=== PATIENT | female | born 1960 | race Caucasian/White ===

== ENCOUNTER 2017-05-31 19:20 | Emergency (ER) | payer BC, OTHER ==
[2017-05-31 19:59] LABS: ABS Basophils 0 10^3/ul (0-0.2); ABS Eosinophils 0.2 10^3/ul (0-0.6); ABS Lymphocytes 2.5 10^3/ul (1.0-4.8); ABS Monocytes 0.6 10^3/ul (0-0.8); ABS Neutrophils 6.1 10^3/ul (1.5-7.7); ABS Nucleated RBC 0.01 10^3/ul; Eosinophil % 2.6 % (0-6); Hematocrit 42 % (35-47); Hemoglobin 14.3 g/dl (12.0-16.0); Mean Corpuscular HGB Conc 34 g/dl (31-36); Mean Corpuscular Hemoglobin 31 pg (27-31); Mean Corpuscular Volume 92 fL (80-97); Mean Platelet Volume 9 um3 (7.4-10.4); Nucleated Red Blood Cells % 0.1; Platelet Count 283 10^3/ul (150-450); Red Blood Count 4.58 10^6/ul (4.0-5.4); Red Cell Distribution Width 13 % (10.5-15); White Blood Count 9.4 10^3/ul (3.5-10.8)
[2017-05-31] MEDS: Nitroglycerin TAB 0.4 MG* 0.4 MG TAB SL ONE ×2 (20:03→20:31)
[2017-05-31 20:09] LABS: EGFR Non-African American 71.9 (>60)
[2017-05-31] MEDS ORDERED: Iohexol 350* (CONTRAST) 500 ML MDV IV ONE (20:18)
--- NOTE | 2017-05-31 20:18 | RAD ---
INDICATION: Chest pain COMPARISON: None. TECHNIQUE: Single AP portable view of the chest was obtained. FINDINGS: Image quality is compromised due to the relative inferiority of a portable chest x-ray. The heart and mediastinum exhibit normal size and contour. The lungs are grossly clear. There is no evidence of a large pleural effusion. Visualized bones are normal for the patient's age. IMPRESSION: No radiographic evidence for acute cardiopulmonary abnormality on this portable chest x-ray.
--- NOTE | 2017-05-31 21:42 | RAD ---
STUDY: CT angiography of the chest, abdomen and pelvis. INDICATION: Chest pain radiating to the back COMPARISON: CT abdomen pelvis dated February 25, 2012 TECHNIQUE: Multidetector CT angiography of the chest, abdomen and pelvis were obtained from the lung apices to the ischial tuberosities after the intravenous injection of 100 mL Omnipaque 350. Reformats were created in the coronal and sagittal planes. 3-D vascular imaging was created from the source images and reviewed as well. ANGIOGRAPHIC FINDINGS: There is no filling defect of the center or lobar pulmonary arteries to indicate centrilobular pulmonary embolism. The segmental branches are less well evaluated. At the level of the bifurcation the mainstem pulmonary artery measures 4.4 mm in diameter (axial image 53). The right mainstem pulmonary artery is top normal at 2.7 cm in diameter. The level of the right mainstem pulmonary artery the ascending aorta measures 3.5 cm in diameter and the descending aorta measures 2.2 cm in diameter. There is no evidence of pathologic aneurysmal dilatation or acute dissection of the thoracic or abdominal aorta. The branch vessels off of the arch of the aorta are adequately patent as are the major branch vessels from the abdominal aorta. Contrast is seen filling continuously into the proximal femoral arteries. NON ANGIOGRAPHIC FINDINGS: Chest: The lungs are clear. There are no large pleural effusions. There is no mediastinal or hilar lymphadenopathy. The heart is grossly normal in appearance. Abdomen & Pelvis: There is a small hiatal hernia. In the right lobe of liver there is a fluid density structure most compatible with a benign cyst measuring 9 mm in greatest axial dimension. The liver is otherwise homogenous in attenuation. The spleen, pancreas and adrenal glands are grossly normal in appearance. The gallbladder is normal. The kidneys are normal in appearance without focal mass, calcification or signs of hydronephrosis. The renal cortices enhance promptly and symmetrically on arterial phase imaging. Evaluation of the gastrointestinal tract is limited without oral contrast. The small and large bowel are not distended. The partially gas-filled appendix is identified in the right lower quadrant measuring less than 6 mm in diameter (axial image 172). There are distal colonic diverticula but no acute inflammatory change characteristic of acute diverticulitis. There is no gross retroperitoneal or mesenteric lymphadenopathy. The pelvic viscera is normal in appearance. Degenerative changes of the thoracic and lumbar spine includes loss of intervertebral disc height as well as anterior marginal osteophyte formation at the lower thoracic and upper lumbar spine. IMPRESSION: 1. No CT evidence of pathologic aortic dissection or aneurysmal dilatation. 2. No centrilobular pulmonary embolism. 3. 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 According to the article cited at the bottom of this dictation, this indicates but does not prove the presence of pulmonary arterial hypertension. 4. Small hiatal hernia. 5. Additional chronic and degenerative changes described in body the report. Toni PD et al., CT Measurement of Main Pulmonary Artery Diameter, [place] Journal of Radiology, 1997, Oct; 71(721): 2360-2779.
[2017-06-01 00:05] VITALS: BP 132/63
--- NOTE | 2017-06-04 11:11 | ED ---
Amaya Barclay Gabriel, scribed for Donavan Watson MD on 05/31/17 at 1943 . HPI Chest Pain - HPI Summary HPI Summary: This patient is a 57 year old F presenting to [facility] accompanied by her family with a chief complaint of CP since that began at 0400 today. The patient rates the constant pain 8/10 in severity and radiating into her left flank, jaw, and ears. Symptoms alleviated slightly by Zantac. Patient reports SOB, dizziness, bilateral numbness in UE, pain on inspiration, and epigastric pain. Patient has a history of a heart murmur, HLD, HTN (resolved with weight loss) and sees a project architect regularly. She has never had a MD but has a family history of them. - History of Current Complaint Chief Complaint: EDChestPainROMI Time Seen by Provider: 05/31/17 19:37 Hx Obtained From: Patient Onset/Duration: Started Hours Ago - at 0400 today, Still Present Time of Onset: 04:00 Timing: Constant Initial Severity: Moderate Current Severity: Moderate Pain Intensity: 8 Pain Scale Used: 0-10 Numeric Chest Pain Location: Diffuse Chest Pain Radiates: Yes Chest Pain Radiates To:: Back, Flank, Arm, Jaw, Other - ear Character: Pressure/Squeezing Aggravating Factor(s): Nothing Alleviating Factor(s): Other: - antiacids Associated Signs and Symptoms: Positive: Other: - SOB, dizziness, bilateral numbness in UE, pain on inspiration, and epigastric pain. - Allergy/Home Medications Allergies/Adverse Reactions: Allergies Allergy/AdvReac Type Severity Reaction Status Date / Time Codeine Allergy Unknown Verified 01/25/15 16:44 Reaction Details PMH/Surg Hx/FS Hx/Imm Hx Endocrine/Hematology History: Denies: Hx Diabetes Cardiovascular History: Reports: Hx Angina - chest pressure, Hx Hypercholesterolemia Denies: Hx Coronary Artery Disease, Hx Hypertension - Hx of HTN but lost 40 lbs and it resolved , Hx Myocardial Infarction, Hx Valvular Heart Disease Respiratory History: Denies: Hx Asthma, Hx Chronic Obstructive Pulmonary Disease (COPD) Infectious Disease History: No Infectious Disease History: Denies: Traveled Outside the [place] in Last 30 Days - Family History Known Family History: Positive: Cardiac Disease - brother and father Negative: Diabetes - Social History Occupation: Employed Full-time Lives: With Family Alcohol Use: Occasionally Alcohol Amount: wine Substance Use Type: Reports: None Smoking Status (MU): Former Smoker Review of Systems Negative: Fever, Chills Negative: Erythema Positive: Ear Ache. Negative: Sore Throat Positive: Chest Pain Positive: Shortness Of Breath, Other - pain on inspiration. Negative: Cough Positive: Abdominal Pain - epigastric . Negative: Vomiting, Nausea Negative: dysuria, hematuria Positive: Other - flank and jaw pain . Negative: Myalgia, Edema Negative: Rash Neurological: Other - dizziness Positive: Numbness - in bilateral UE All Other Systems Reviewed And Are Negative: Yes Physical Exam - Summary Physical Exam Summary: Constitutional: Well-developed, Well-nourished, Alert. (-) Distressed Skin: Warm, Dry HENT: Normocephalic; Atraumatic Eyes: Conjunctiva normal Neck: Musculoskeletal ROM normal neck. (-) JVD, (-) Stridor, (-) Tracheal deviation Cardio: Rhythm regular, rate normal, Heart sounds normal; Intact distal pulses; The pedal pulses are 2+ and symmetric. Radial pulses are 2+ and symmetric. (+) Murmur 2 of 5 systolic Pulmonary/Chest wall: Effort normal. (-) Respiratory distress, (-) Wheezes, (-) Rales Abd: Soft, (-) Tenderness, (-) Distension, (-) Guarding, (-) Rebound Musculoskeletal: (-) Edema Lymph: (-) Cervical adenopathy Neuro: Alert, Oriented x3 Psych: Mood and affect Normal Triage Information Reviewed: Yes Vital Signs On Initial Exam: Initial Vitals Temp Pulse Resp BP Pulse Ox 97.7 F 91 16 183/77 99 05/31/17 19:23 05/31/17 19:23 05/31/17 19:23 05/31/17 19:23 05/31/17 19:23 Vital Signs Reviewed: Yes Diagnostics - Vital Signs Vital Signs Temp Pulse Resp BP Pulse Ox 05/31/17 19:23 97.7 F 91 16 183/77 99 - Laboratory Result Diagrams: 05/31/17 19:40 05/31/17 19:40 Lab Statement: Any lab studies that have been ordered have been reviewed, and results considered in the medical decision making process. - Radiology CXR Radiology Interpretation Completed By: Radiologist - No radiographic evidence for acute cardiopulmonary abnormality on this portable chest x-ray. ED physician has reviewed this radiology report. - CT CTA chest/abd/pelvis CT Interpretation Completed By: Radiologist - 1. No CT evidence of pathologic aortic dissection or aneurysmal dilatation. 2. No centrilobular pulmonary embolism. 3. 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 According to the article cited at the bottom of this dictation, this indicates but does not prove the presence of pulmonary arterial hypertension. 4. Small hiatal hernia. 5. Additional chronic and degenerative changes described in body the report. ED physician has reviewed this radiology report. - EKG 19:33 Cardiac Rate: NL EKG Rhythm: Sinus Rhythm - at 86 BPM EKG Interpretation: no acute changes , No STEMI Re-Evaluation - Re-Evaluation First Eval Re-Evaluation Time: 00:04 Change: Improved - The patient states her chest pain has resolved. Chest Pain Course/Dx - Course Assessment/Plan: This patient is a 57 year old F presenting to [facility] accompanied by her family with a chief complaint of CP since that began at 0400 today. The patient rates the constant pain 8/10 in severity and radiating into her left flank, jaw, and ears. Symptoms alleviated slightly by Zantac. Patient reports SOB, dizziness, bilateral numbness in UE, pain on inspiration, and epigastric pain. Patient has a history of a heart murmur, HLD, HTN (resolved with weight loss) and sees a project architect regularly. She has never had a MD but has a family history of them. An EKG reveals NSR with no acute changes. CXR reveals, per radiologist, No radiographic evidence for acute cardiopulmonary abnormality on this. portable chest x-ray. CTA chest/ABD/Pelvis reveals, per radiology, 1. No CT evidence of pathologic aortic dissection or aneurysmal dilatation. 2. No centrilobular pulmonary embolism. 3. There is pathologic dilatation of the main stem pulmonary artery measuring 4.4 cm in. diameter. According to the article cited at the bottom of this dictation, this indicates. but does not prove the presence of pulmonary arterial hypertension. 4. Small hiatal hernia. 5. Additional chronic and degenerative changes described in body the report. Test results with no significant abnormalities. In the ED course the patient was given NTG. Dx of CP unspecific. She had 2 negative Trops and her EKG showed no acute findings. We discussed patient care with Dr. Jessica and they recommended to take a second Trop and discharge her home. Patient will be discharged and follow up from Dr. Berumen. The patient is agreeable with this plan. - Diagnoses Provider Diagnoses: Chest pain, unspecified - Provider Notifications Discussed Care Of Patient With: Donald Jessica Time Discussed With Above Provider: 22:30 Instructed by Provider To: Other - We discussed patient care with Dr. Jessica and they recommended to take a second Trop and discharge her home. Discharge - Discharge Plan Condition: Stable Disposition: HOME Patient Education Materials: Chest Pain (ED) Referrals: Rolo Berumen MD [Medical Doctor] - 3 Days Svetlana Bragg NP [Primary Care Provider] - Additional Instructions: Follow up with Dr. Berumen in 2-3 days. RETURN TO THE EMERGENCY DEPARTMENT FOR CHANGING OR WORSENING SYMPTOMS. The documentation as recorded by the Amaya villalpando Gabriel accurately reflects the service I personally performed and the decisions made by , Donavan Watson MD.
== END 2017-05-31 23:50 | disposition home or self-care (01) ==
LOC: ED 19:20
DX: R07.9 Chest pain, unspecified (principal); R06.02 Shortness of breath; R42 Dizziness and giddiness; R10.13 Epigastric pain; Z87.891 Personal history of nicotine dependence; H92.09 Otalgia, unspecified ear
CPT/HCPCS: 36415; 71010; 71275; 74174; 80053; 83605; 84484; 85025; 85379; 93005; 99284; A9270-GY; Q9967

== ENCOUNTER 2019-06-04 12:25 | Emergency (ER) | payer BC ==
[2019-06-04 13:20] LABS: ABS Eosinophils 0.2 10^3/ul (0-0.6); ABS Lymphocytes 1.4 10^3/ul (1.0-4.8); ABS Monocytes 0.4 10^3/ul (0-0.8); ABS Neutrophils 4.9 10^3/ul (1.5-7.7); Eosinophil % 2.5 %; Hematocrit 43 % (35-47); Hemoglobin 14.6 g/dL (12.0-16.0); Lymphocyte % 20.3 %; Mean Corpuscular HGB Conc 34 g/dL (31-36); Mean Corpuscular Hemoglobin 31 pg (27-31); Mean Corpuscular Volume 92 fL (80-97); Nucleated Red Blood Cells % 0.1; Platelet Count 263 10^3/uL (150-450); Red Blood Count 4.67 10^6 /uL (3.70-4.87); Red Cell Distribution Width 13 % (10-15); White Blood Count 6.9 10^3/uL (3.5-10.8)
[2019-06-04 13:33] LABS: INR 0.95 (0.82-1.09)
[2019-06-04 13:36] LABS: Albumin 4.5 g/dL (3.2-5.2); Albumin/Globulin Ratio 1.6 (1-3); BUN/Creatinine Ratio 11.8 (8-20); Calcium 9.6 mg/dL (8.6-10.3); EGFR African American 94.3 (>60); EGFR Non-African American 77.9 (>60); Globulin 2.8 g/dL (2-4); Total Bilirubin 0.4 mg/dL (0.2-1.0); Total Protein 7.3 g/dL (6.4-8.9)
[2019-06-04] MEDS ORDERED: Al Hydrox/Mg Hydrox/Simet LIQ* 30 ML UDC PO ONE (13:37)
[2019-06-04] MEDS ORDERED: Lidocaine 2% VISCOUS* 15 ML UDC PO ONE (13:37)
--- NOTE | 2019-06-04 13:44 | ED ---
HPI Chest Pain - HPI Summary HPI Summary: 59 y/o female presented to [facility] complaining of burning throat pain and mild chest pain onset when she woke up this morning around [id number]. She is experiencing a "flutter" in her heart with upper sternal CP that has since resolved. She went to urgent care this morning and was referred to the ED to r/ o cardiac issues. She has a heart murmur but no other cardiac Hx, although she gets checked yearly for cardiac issues. She takes Pepcid for her reflux. She has also been anxious lately. She takes Trazodone which she is currently being weened off of; she attributes reflux symptoms to Trazodone intake. - History of Current Complaint Chief Complaint: EDThroatPain Time Seen by Provider: 06/04/19 13:19 Hx Obtained From: Patient Onset/Duration: Started Hours Ago, Resolved Current Severity: None Pain Intensity: 0 Pain Scale Used: 0-10 Numeric Chest Pain Location: Upper Sternal Character: Burning - similar to GERD symptoms Aggravating Factor(s): Medications - Trazodone Alleviating Factor(s): Nothing Associated Signs and Symptoms: Positive: Chest Pain - resolved, fluttering - Allergy/Home Medications Allergies/Adverse Reactions: Allergies Allergy/AdvReac Type Severity Reaction Status Date / Time codeine Allergy Hives Verified 07/21/18 13:18 PMH/Surg Hx/FS Hx/Imm Hx Endocrine/Hematology History: Denies: Hx Diabetes Cardiovascular History: Reports: Hx Angina - chest pressure, Hx Hypercholesterolemia Denies: Hx Coronary Artery Disease, Hx Hypertension - Hx of HTN but lost 40 lbs and it resolved , Hx Myocardial Infarction, Hx Valvular Heart Disease Respiratory History: Denies: Hx Asthma, Hx Chronic Obstructive Pulmonary Disease (COPD) History: Denies: Hx Renal Disease - Cancer History Hx Chemotherapy: No Hx Radiation Therapy: No Infectious Disease History: No Infectious Disease History: Denies: Traveled Outside the [place] in Last 30 Days - Family History Known Family History: Positive: Cardiac Disease - brother and father Negative: Diabetes - Social History Alcohol Use: Occasionally Alcohol Amount: wine Substance Use Type: Reports: None Smoking Status (MU): Former Smoker Review of Systems Positive: Other - burning in throat Positive: Chest Pain - flutter in upper chest Positive: Anxious All Other Systems Reviewed And Are Negative: Yes Physical Exam - Summary Physical Exam Summary: Constitutional: Well-developed, Well-nourished, Alert. (-) Distressed Skin: Warm, Dry HENT: Normocephalic; Atraumatic Eyes: Conjunctiva normal Neck: Musculoskeletal ROM normal neck. (-) JVD, (-) Stridor, (-) Nuchal rigidity Cardio: Rhythm regular, rate normal, Heart sounds normal; Intact distal pulses; Radial pulses are 2+ and symmetric. (-) Murmur Pulmonary/Chest wall: Effort normal. (-) Respiratory distress, (-) Wheezes, (-) Rales Abd: Soft, (-) tenderness, (-) Distension, (-) Guarding, (-) Rebound Musculoskeletal: (-) Edema Lymph: (-) Cervical adenopathy Neuro: Alert, Oriented x3 Psych: Mood and affect Normal Triage Information Reviewed: Yes Vital Signs On Initial Exam: Initial Vitals Temp Pulse Resp BP Pulse Ox 97.1 F 98 19 171/90 100 06/04/19 12:25 06/04/19 12:25 06/04/19 12:25 06/04/19 12:25 06/04/19 12:25 Vital Signs Reviewed: Yes Procedures - Sedation Patient Received Moderate/Deep Sedation with Procedure: No Diagnostics - Vital Signs Vital Signs Temp Pulse Resp BP Pulse Ox 06/04/19 12:25 97.1 F 98 19 171/90 100 - Laboratory Lab Results: Lab Results 06/04/19 06/04/19 06/04/19 Range/Units 13:09 13:09 13:09 WBC 6.9 (3.5-10.8) 10^3/uL RBC 4.67 (3.70-4.87) 10^6 /uL Hgb 14.6 (12.0-16.0) g/dL Hct 43 (35-47) % MCV 92 (80-97) fL MCH 31 (27-31) pg MCHC 34 (31-36) g/dL RDW 13 (10-15) % Plt Count 263 (150-450) 10^3/uL MPV 9.0 (7.4-10.4) fL Neut % (Auto) 71.4 % Lymph % (Auto) 20.3 % [place] % (Auto) 5.3 % Eos % (Auto) 2.5 % Baso % (Auto) 0.5 % Absolute Neuts (auto) 4.9 (1.5-7.7) 10^3/ul Absolute Lymphs (auto) 1.4 (1.0-4.8) 10^3/ul Absolute Monos (auto) 0.4 (0-0.8) 10^3/ul Absolute Eos (auto) 0.2 (0-0.6) 10^3/ul Absolute Basos (auto) 0.0 (0-0.2) 10^3/ul Absolute Nucleated RBC 0.0 10^3/ul Nucleated RBC % 0.1 INR (Anticoag Therapy) 0.95 (0.82-1.09) Sodium 138 (135-145) mmol/L Potassium 4.0 (3.5-5.0) mmol/L Chloride 105 (101-111) mmol/L Carbon Dioxide 26 (22-32) mmol/L Anion Gap 7 (2-11) mmol/L BUN 9 (6-24) mg/dL Creatinine 0.76 (0.51-0.95) mg/dL Est GFR ( Amer) 94.3 (>60) Est GFR (Non-Af Amer) 77.9 (>60) BUN/Creatinine Ratio 11.8 (8-20) Glucose 93 (70-100) mg/dL Calcium 9.6 (8.6-10.3) mg/dL Total Bilirubin 0.40 (0.2-1.0) mg/dL AST 19 (13-39) U/L ALT 23 (7-52) U/L Alkaline Phosphatase 73 (34-104) U/L Troponin I 0.00 (<0.03) ng/mL Total Protein 7.3 (6.4-8.9) g/dL Albumin 4.5 (3.2-5.2) g/dL Globulin 2.8 (2-4) g/dL Albumin/Globulin Ratio 1.6 (1-3) Result Diagrams: 06/04/19 13:09 06/04/19 13:09 Lab Statement: Any lab studies that have been ordered have been reviewed, and results considered in the medical decision making process. - EKG 1233 Cardiac Rate: NL - 72 bpm EKG Rhythm: Sinus Rhythm EKG Comparison: No Significant Change - No significant changes from prior 2016. Summary of EKG Findings: An EKG at 1233 reveals normal sinus rhythm at 72bpm, nml axis, T-wave inversions in V1. No STEMI. No significant changes from prior 05/31/2017. ED physician has reviewed and interpreted this EKG. Re-Evaluation - Re-Evaluation First Eval Re-Evaluation Time: 13:50 Comment: Discussed results and plan for discharge. Chest Pain Course/Dx - Course Course Of Treatment: 59 y/o F w hx heart murmur p/w reflux like symptoms and CP. Chest Pain DDX: The patient is well appearing, with stable vitals. Given the patient's clinical presentation, highest on differential is atypical chest pain. Suspect could be secondary to acid reflux she states there is a burning pain in her throat when she wakes. Trop negative here, given GI cocktail. Heart score: 3, low risk. Although less likely, differential also includes the following: --Pneumothorax: Equal breath sounds, story inconsistent since gradual onset of symptoms. CXR shows no evidence of pneumothorax. Unlikely. -- Cardiac tamponade: The history and physical are not concerning for tamponade. No Pulsus Paradoxus, no tachypnea. Unlikely. --Mediastinitis or esophageal rupture: The history is not consistent, as the patient has had no recent history of significant wretching, instrumentation, or mediastinal surgeries. Unlikely. --Aortic dissection: The patient does not describe the classical tearing chest pain radiating into the back, and the CXR does not show mediastinal widening or other signs of aortic dissection. Unlikely. --ACS: The initial EKG shows no ischemic changes. The initial troponin is not elevated. - Diagnoses Provider Diagnoses: Acid reflux, Chest pain Discharge ED - Sign-Out/Discharge Documenting (check all that apply): Patient Departure - dc - Discharge Plan Condition: Stable Disposition: HOME Patient Education Materials: Chest Pain (ED), Gastroesophageal Reflux Disease ( ED) Referrals: Margarito Oakes NP [Primary Care Provider] - Rolo Berumen MD [Medical Doctor] - 3 Days Additional Instructions: You were seen in the emergency department for chest pain. Your EKG (heart tracing), labs and chest x-ray did not show any cause for pain. Important that you follow up with you primary care doctor in the next 1-2 days to help schedule an outpatient stress test. Please return to the emergency department for continued chest pain, trouble breathing, passing out, or if you're concerned. - Billing Disposition and Condition Condition: STABLE Disposition: Home - Attestation Statements Document Initiated by Varinder: Yes Documenting Scribe: Mee Jean Provider For Whom Varinder is Documenting (Include Credential): Dr. Kahlil Gardner MD Scribe Attestation: I, Mee Jean, scribed for Dr. Kahlil Gardner MD on 06/04/19 at 1435. Scribe Documentation Reviewed: Yes Provider Attestation: The documentation as recorded by the Mee villalpando accurately reflects the service I personally performed and the decisions made by me, Dr. Kahlil Gardner MD Status of Scribe Document: Viewed
[2019-06-04 14:29] VITALS: BP 150/95
== END 2019-06-04 14:28 | disposition home or self-care (01) ==
LOC: ED 12:25
DX: K21.9 Gastro-esophageal reflux disease without esophagitis (principal); R07.9 Chest pain, unspecified; E78.00 Pure hypercholesterolemia, unspecified; F41.9 Anxiety disorder, unspecified; Z87.891 Personal history of nicotine dependence; Z79.899 Other long term (current) drug therapy; Z88.5 Allergy status to narcotic agent
CPT/HCPCS: 36415; 80053; 84484; 85025; 85610; 93005; 99282